=== PATIENT | female | born 1995 | race Caucasian/White ===

== ENCOUNTER 2019-10-14 11:30 | Emergency (ER) | payer MEDICAID ==
[2019-10-14] MEDS ORDERED: ONDANSETRON 4 MG TAB.RAPDIS PO ONE (11:40)
[2019-10-14] MEDS ORDERED: RINGERS SOLUTION,LACTATED 1,000 ML IV ONE (11:40)
--- NOTE | 2019-10-14 11:42 | ER Document Report ---
ED Medical Screen (RME) - General Chief Complaint: Abdominal Pain Stated Complaint: ABDOMINAL PAIN Time Seen by Provider: 10/14/19 11:37 Mode of Arrival: Ambulatory Information source: Patient Notes: 24-year-old female approximately 8 to 9 weeks at G5, P2 presents emergency department with complaints of lower abdominal pain nausea vomiting diarrhea. Reports she is had vomiting every morning since she became the past 48 hours she is vomited all day. Denies fever reports she did get her flu vaccine this year. Has not received care yet. Denies pain with void denies vaginal discharge denies vaginal bleeding I have greeted and performed a rapid initial assessment of this patient. A comprehensive ED assessment and evaluation of the patient, analysis of test results and completion of the medical decision making process will be conducted by additional ED providers. TRAVEL OUTSIDE OF THE [place] IN LAST 30 DAYS: No - Related Data Allergies/Adverse Reactions: No Known Allergies Allergy (Verified 10/14/19 11:36) Past Medical History - Social History Chew tobacco use (# tins/day): No Frequency of alcohol use: None Drug Abuse: None Physical Exam - Vital signs Vitals: Temp Pulse Resp BP Pulse Ox 98.9 F 91 16 131/78 H 100 10/14/19 11:35 10/14/19 11:35 10/14/19 11:35 10/14/19 11:35 10/14/19 11:35 Course - Vital Signs Vital signs: Temp Pulse Resp BP Pulse Ox 98.9 F 91 16 131/78 H 100 10/14/19 11:35 10/14/19 11:35 10/14/19 11:35 10/14/19 11:35 10/14/19 11:35
[2019-10-14 12:22] LABS: ABSOLUTE EOSINOPHILS # (AUTO) 0.1 10^3/uL (0.0-0.6); ABSOLUTE LYMPHOCYTES (AUTO) 1.7 10^3/uL (0.5-4.7); ABSOLUTE MONOCYTES (AUTO) 0.5 10^3/uL (0.1-1.4); ABSOLUTE NEUT (AUTO) 5.1 10^3/uL (1.7-8.2); BASOPHILS % (AUTO) 0.5 % (0-2); EOSINOPHILS % (AUTO) 1.4 % (0-6); HEMATOCRIT 38.8 % (36.0-47.0); HEMOGLOBIN 13.7 g/dL (12.0-15.5); LYMPHOCYTES % (AUTO) 22.4 % (13-45); MEAN CORPUSCULAR HEMOGLOBIN 31.2 pg (27.0-33.4); MEAN CORPUSCULAR HGB CONC 35.3 g/dL (32.0-36.0); MEAN CORPUSCULAR VOLUME 88 fl (80-97); MONOCYTES % (AUTO) 7.3 % (3-13); PLATELET COUNT 221 10^3/uL (150-450); RED CELL DISTRIBUTION WIDTH 13.7 % (11.5-14.0); SEGMENTED NEUTROPHILS % (AUTO) 68.4 % (42-78); TOTAL CELLS COUNTED % (AUTO) 100 %; WHITE BLOOD COUNT 7.4 10^3/uL (4.0-10.5)
[2019-10-14 12:39] LABS: ALBUMIN 4.8 g/dL (3.5-5.0); ALKALINE PHOSPHATASE 45 U/L (38-126); ANION GAP 9 (5-19); ASPARTATE AMINO TRANSFERASE 17 U/L (14-36); BILIRUBIN,DIRECT 0.1 mg/dL (0.0-0.4); BILIRUBIN,TOTAL 0.5 mg/dL (0.2-1.3); BLOOD UREA NITROGEN 7 mg/dL (7-20); CARBON DIOXIDE 25 mmol/L (22-30); CHLORIDE 105 mmol/L (98-107); GLUCOSE 74 mg/dL (75-110); POTASSIUM 3.9 mmol/L (3.6-5.0); TOTAL PROTEIN 7.4 g/dL (6.3-8.2)
[2019-10-14 12:46] LABS: APPEARANCE,URINE CLOUDY; BILIRUBIN,URINE NEGATIVE (NEGATIVE); GLUCOSE, URINE NEGATIVE (NEGATIVE); KETONES,URINE TRACE mg/dL (NEGATIVE); PROTEIN,URINE 30 mg/dL (NEGATIVE); URINE SPECIFIC GRAVITY 1.024; UROBILINOGEN,URINE NEGATIVE mg/dL (<2.0)
[2019-10-14 12:48] LABS: COLOR,URINE DARK YELLOW
--- NOTE | 2019-10-14 14:22 | ER Document Report ---
ED General - General Chief Complaint: Abdominal Pain Stated Complaint: ABDOMINAL PAIN Time Seen by Provider: 10/14/19 11:37 Primary Care Provider: [facility] [Provider Group] - Follow up as needed [facility] [Provider Group] - Follow up as needed Mode of Arrival: Ambulatory Notes: 24-year-old G5, P2 approximately 8 to 9 weeks female presents with lower abdominal pain that is been ongoing for the past 48 hours. Patient is also been having nausea/vomiting/diarrhea for the past week and a half. Patient denies any vaginal bleeding. Patient states she does have vaginal discharge and would like to be checked. Patient states she does not have an DISEASE CASE MANAGER RN and needs to be referred to 1. Patient denies any fever, chills, constipation, urinary symptoms, chest pain, shortness of breath. TRAVEL OUTSIDE OF THE [place] IN LAST 30 DAYS: No - Related Data Allergies/Adverse Reactions: No Known Allergies Allergy (Verified 10/14/19 11:36) Past Medical History - General Information source: Patient - Social History Smoking Status: Never Smoker Chew tobacco use (# tins/day): No Frequency of alcohol use: None Drug Abuse: None Family History: None Patient has suicidal ideation: No Patient has homicidal ideation: No Review of Systems - Review of Systems Notes: Constitutional: Negative for fever. HENT: Negative for sore throat. Eyes: Negative for visual changes. Cardiovascular: Negative for chest pain. Respiratory: Negative for shortness of breath. Gastrointestinal: Positive for abdominal pain, vomiting or diarrhea. Genitourinary: Negative for dysuria. Musculoskeletal: Negative for back pain. Skin: Negative for rash. Neurological: Negative for headaches, weakness or numbness. 10 point ROS negative except as marked above and in HPI. Physical Exam - Vital signs Vitals: Temp Pulse Resp BP Pulse Ox 98.9 F 91 16 131/78 H 100 10/14/19 11:35 10/14/19 11:35 10/14/19 11:35 10/14/19 11:35 10/14/19 11:35 - Notes Notes: GENERAL: Well-appearing, well-nourished and in no acute distress. HEAD: Atraumatic, normocephalic. EYES: Extraocular movements intact, sclera anicteric, conjunctiva are normal. NECK: Normal range of motion, supple without lymphadenopathy or JVD. LUNGS: Breath sounds clear to auscultation bilaterally and equal. No wheezes rales or rhonchi. HEART: Regular rate and rhythm without murmurs, rubs or gallops. ABDOMEN: Soft, nontender. No guarding or rebound. : Mild white vaginal discharge. No cervical motion or adnexal tenderness bilaterally. EXTREMITIES: Normal range of motion, no pitting or edema. No clubbing or cy anosis. NEUROLOGICAL: Cranial nerves II through XII grossly intact. Normal speech, normal gait. PSYCH: Normal mood, normal affect. SKIN: Warm, Dry, normal turgor, no rashes or lesions noted. Course - Re-evaluation Re-evalutation: 10/14/19 G5, P2 approximately 8 to 9-week female presents for lower abdominal pain with nausea/vomiting/diarrhea. Patient denies any vaginal bleeding. Labs are reassuring. Pelvic reveals mild white discharge with no cervical motion tenderness or bilateral adnexal tenderness. Patient is n ontoxic, well-appearing. Abdomen soft nontender. PE is otherwise unremarkable. Ultrasound and pelvic cultures are currently pending. 10/14/19 ultrasound shows IUP at 7 weeks 2 days. report and given to patient. Discussed all results with patient. Patient states his exam was consistent with bacterial vaginosis. Patient was given prescription for Flagyl and take lieges. Patient given close follow-up with DISEASE CASE MANAGER RN. Strict return precautions given. Patient voices understanding and agrees with plan of care. - Vital Signs Vital signs: Temp Pulse Resp BP Pulse Ox 98.8 F 82 16 114/61 98 10/14/19 16:51 10/14/19 16:51 10/14/19 16:51 10/14/19 16:51 10/14/19 16:51 - Laboratory Result Diagrams: 10/14/19 11:52 10/14/19 11:52 Laboratory results interpreted by me: 10/14/19 10/14/19 11:52 11:52 Creatinine 0.49 L Glucose 74 L Beta HCG, Quant 56715.00 H Urine Protein 30 H Urine Ketones TRACE H Leukocyte Esterase Rfl SMALL H Urine Ascorbic Acid 40 H Discharge - Discharge Clinical Impression: Bacterial vaginosis in , Lower abdominal pain, Nausea vomiting and diarrhea Qualifiers: Weeks of gestation: less than 8 weeks Qualified Code(s): Z3A.01 - Less than 8 weeks gestation of Condition: Stable Disposition: HOME, SELF-CARE Additional Instructions: Please take medications as prescribed. Your exam is most consistent with bacterial vaginosis, please take antibiotics as prescribed and finish all doses even if you feel better. Please follow-up with DISEASE CASE MANAGER RN listed in 3 to 5 days. Return to ER for any worsening symptoms, including worsening pain, vomiting not controlled by medication, urinary symptoms, vaginal bleeding/worsening discharge, fever, chest pain, shortness of breath, or any other symptoms that are concerning to you. Prescriptions: Doxylamine Succinate/Vit B6 [Pipe Key 10-10 mg Tablet] 2 each PO QHS #20 tablet. Metronidazole [Flagyl 500 mg Tablet] 500 mg PO BID #14 tablet Forms: Special Work Note, Return to Work Referrals: [facility] [Provider Group] - Follow up as needed [facility] [Provider Group] - Follow up as needed
[2019-10-14 15:18] LABS: T.VAGINALIS (WET MOUNT) NO TRICHOMONAS SEEN; WBCS (WET MOUNT) 4+ WBCS SEEN; YEAST (WET MOUNT) NO YEAST SEEN
[2019-10-14 15:19] LABS: BACTERIA (WET MOUNT) 4+ BACTERIA SEEN; EPITHELIALS (WET MOUNT) 4+ EPITHELIALS SEEN
--- NOTE | 2019-10-14 16:19 | RADIOLOGY REPORT (SQ) ---
EXAM DESCRIPTION: U/S [id number] TRNABD 1GES W/ODOP COMPLETED DATE/TIME: 10/14/2019 4:05 pm REASON FOR STUDY: 8-9 weeks preg abd pain vomiting COMPARISON: None. TECHNIQUE: Transabdominal static and realtime grayscale images acquired of the pelvis. Additional se lected spectral and color Doppler images recorded. All images stored on PACs. [id number],750 CLINICAL DATES: Unknown LIMITATIONS: None. FINDINGS: FETUS: Single Living intrauterine . ULTRASOUND EGA: 7 weeks 2 days. ULTRASOUND RADHA: 05/30/2020. EFW: Not applicable less than 20 weeks. CRL: 1.1 cm. FHR: 133 beats per minute. SURVEY: Too early to assess. AMNIOTIC FLUID: Adequate amount. PLACENTA: Not yet developed due to early gestation. SUBCHORIONIC BLEED: Yes SIZE OF BLEED: 1.7 x 1.2 cm. UTERUS: No masses. No anomalies. CERVICAL LENGTH: 2.2 cm. Closed. RIGHT ADNEXA: Normal ovary with normal vascular flow. 3 x 1.9 x 2.7 cm. No adnexal free fluid. No adnexal masses. LEFT ADNEXA: Ovary not seen. No adnexal free fluid. No adnexal masses. FREE FLUID: None. OTHER: No other significant finding. IMPRESSION: LIVING INTRAUTERINE . EGA 7 weeks 2 days. Trimester of : First trimester - 0 to 13 weeks. TECHNICAL DOCUMENTATION: JOB ID: [id number] [employer]- All Rights Reserved rev Reading location - IP/workstation name: [email or web address]
[2019-10-14 16:51] VITALS: BP 114/61
[2019-10-14 17:14] LABS: CHLAM PCR NOT DETECTED (NOT DETECT)
== END 2019-10-14 16:53 | disposition home or self-care (01) ==
LOC: ER 11:30
DX: O23.591 Infection of other part of genital tract in pregnancy, first trimester (principal); B96.89 Other specified bacterial agents as the cause of diseases classified elsewhere; O26.891 Other specified pregnancy related conditions, first trimester; R10.30 Lower abdominal pain, unspecified; O21.9 Vomiting of pregnancy, unspecified; R19.7 Diarrhea, unspecified; Z3A.01 Less than 8 weeks gestation of pregnancy
CPT/HCPCS: 99284; 96360; 36415; 87086; 87210; 84702; 85025; 80053; 81001; 87491; 87591; 76801; S0119; J7120

== ENCOUNTER 2019-11-20 10:41 | Emergency (ER) | payer MEDICAID ==
[2019-11-20] MEDS ORDERED: ONDANSETRON HCL INJ/PF 4 MG/2 ML SDV IM ONE (11:56)
--- NOTE | 2019-11-20 11:56 | ER Document Report ---
ED Medical Screen (RME) - General Chief Complaint: Nausea/Vomiting Stated Complaint: NAUSEA/VOMITING Time Seen by Provider: 11/20/19 11:55 Mode of Arrival: Ambulatory Information source: Patient Notes: 24-year-old female presented to ED for complaint of nausea and vomiting not being able to eat. She went to the health department yesterday and they told her she continued to vomit for the next 24 hours please to go to the emergency room. She states she is 5 para 2. She states she is tried Diclegis and Zofran by mouth and neither one has helped. I have greeted and performed a rapid initial assessment of this patient. A comprehensive ED assessment and evaluation of the patient, analysis of test results and completion of medical decision making process will be conducted by an additional ED providers. TRAVEL OUTSIDE OF THE [place] IN LAST 30 DAYS: No - Related Data Allergies/Adverse Reactions: azithromycin Adverse Reaction (Intermediate, Verified 11/20/19 11:54) GI upset Home Medications: pnv Physical Exam - Vital signs Vitals: Temp Pulse Resp BP Pulse Ox 98.8 F 77 14 111/66 98 11/20/19 10:55 11/20/19 10:55 11/20/19 10:55 11/20/19 10:55 11/20/19 10:55 Course - Vital Signs Vital signs: Temp Pulse Resp BP Pulse Ox 98.8 F 77 14 111/66 98 11/20/19 10:55 11/20/19 10:55 11/20/19 10:55 11/20/19 10:55 11/20/19 10:55
[2019-11-20] MEDS ORDERED: NORMAL SALINE 1000 ML 1,000 ML IV PRN (11:57)
[2019-11-20 12:47] LABS: ABSOLUTE LYMPHOCYTES (AUTO) 1.5 10^3/uL (0.5-4.7); ABSOLUTE MONOCYTES (AUTO) 0.6 10^3/uL (0.1-1.4); ABSOLUTE NEUT (AUTO) 7.9 10^3/uL (1.7-8.2); BASOPHILS % (AUTO) 0.5 % (0-2); EOSINOPHILS % (AUTO) 0.5 % (0-6); HEMATOCRIT 37.3 % (36.0-47.0); HEMOGLOBIN 13.2 g/dL (12.0-15.5); LYMPHOCYTES % (AUTO) 14.6 % (13-45); MEAN CORPUSCULAR HEMOGLOBIN 31.4 pg (27.0-33.4); MEAN CORPUSCULAR HGB CONC 35.5 g/dL (32.0-36.0); MEAN CORPUSCULAR VOLUME 89 fl (80-97); MONOCYTES % (AUTO) 5.6 % (3-13); PLATELET COUNT 251 10^3/uL (150-450); RED BLOOD COUNT 4.21 10^6/uL (3.72-5.28); RED CELL DISTRIBUTION WIDTH 13.8 % (11.5-14.0); SEGMENTED NEUTROPHILS % (AUTO) 78.8 % (42-78); TOTAL CELLS COUNTED % (AUTO) 100 %
[2019-11-20 12:51] LABS: APPEARANCE,URINE CLOUDY; BILIRUBIN,URINE NEGATIVE (NEGATIVE); COLOR,URINE YELLOW; GLUCOSE, URINE NEGATIVE (NEGATIVE); KETONES,URINE 80 mg/dL (NEGATIVE); PROTEIN,URINE 30 mg/dL (NEGATIVE); URINE SPECIFIC GRAVITY 1.024; UROBILINOGEN,URINE NEGATIVE mg/dL (<2.0)
[2019-11-20 13:07] LABS: ALBUMIN 4.3 g/dL (3.5-5.0); ALKALINE PHOSPHATASE 62 U/L (38-126); ANION GAP 7 (5-19); ASPARTATE AMINO TRANSFERASE 16 U/L (14-36); BILIRUBIN,TOTAL 0.5 mg/dL (0.2-1.3); BLOOD UREA NITROGEN 8 mg/dL (7-20); CALCIUM 9.5 mg/dL (8.4-10.2); CARBON DIOXIDE 25 mmol/L (22-30); CHLORIDE 103 mmol/L (98-107); GLUCOSE 71 mg/dL (75-110); POTASSIUM 4.5 mmol/L (3.6-5.0); TOTAL PROTEIN 7.1 g/dL (6.3-8.2)
--- NOTE | 2019-11-20 13:25 | ER Document Report ---
ED General - General Chief Complaint: Nausea/Vomiting Stated Complaint: NAUSEA/VOMITING Time Seen by Provider: 11/20/19 11:55 Mode of Arrival: Ambulatory Notes: 24-year-old female G3, P2 approximately early second trimester with history of nausea vomiting with presents with nausea vomiting and some back pain. She has no dysuria or fever. She is Blayne been taking Ticlid just and Zofran and it is not working. She denies abdominal pain vaginal bleeding or loss of fluid. She was seen at triage where labs were drawn: Normal except for UTI. TRAVEL OUTSIDE OF THE [place] IN LAST 30 DAYS: No - Related Data Allergies/Adverse Reactions: azithromycin Adverse Reaction (Intermediate, Verified 11/20/19 11:54) GI upset Home Medications: pnv Past Medical History - General Information source: Patient - Social History Smoking Status: Former Smoker Chew tobacco use (# tins/day): No Frequency of alcohol use: None Drug Abuse: None Family History: None Patient has suicidal ideation: No Patient has homicidal ideation: No Review of Systems - Review of Systems Notes: REVIEW OF SYSTEMS GEN: Denies fever, chills, weight loss ENT: Denies sore throat, nasal discharge, ear pain EYES: Denies blurry vision, eye pain, discharge CV: Denies chest pain, palpitations, edema RESP: Denies cough, shortness of breath, wheezing GI: , nausea, vomiting, MSK: Denies joint pain/swelling, edema, SKIN: Denies rash, skin lesions LYMPH: Denies swollen glands/lymph nodes NEURO: Denies headache, focal weakness or numbness, dizziness PSYCH: Denies depression, suicidal or homicidal ideation PHYSICAL EXAMINATION General: No acute distress, well-nourished Head: Atraumatic, normocephalic ENT: Mouth normal, oropharynx moist, no exudates or tonsillar enlargement Eyes: Conjunctiva normal, pupils equal, lids normal Neck: No JVD, supple, no guarding CVS: Normal rate, regular rhythm, no murmurs Resp: No resp distress, equal and normal breath sounds bilaterally GI: Nondistended, soft, no tenderness to palpation, no rebound or guarding Ext: No deformities, no edema, normal range of motion in upper and lower ext Back: No CVA or midline TTP Skin: No rash, warm Lymphatic: No lymphadeopathy noted Neuro: Awake, alert. Face symmetric. GCS 15. Physical Exam - Vital signs Vitals: Temp Pulse Resp BP Pulse Ox 98.8 F 77 14 111/66 98 11/20/19 10:55 11/20/19 10:55 11/20/19 10:55 11/20/19 10:55 11/20/19 10:55 Course - Re-evaluation Re-evalutation: 11/20/19 13:48 Nausea and vomiting with , not actively vomiting in the ED, labs normal without electrolyte abnormalities or acute kidney injury. Has not been able to tolerate oral antiemetics. heart tones intact, at this time I think she is low risk for miscarriage. Her urine is positive for infection will require antibiotics. I will add on Phenergan suppositories. She is now on a wait in the ED as she is only been waiting for 3 hours, would rather go to pharmacy and attempt home care with PhenerganI think this is reasonable. I have discussed with the patient there likely diagnosis, aftercare plan, follow-up plans and my usual and customary return precautions. They verbalized understanding of this. - Vital Signs Vital signs: Temp Pulse Resp BP Pulse Ox 98.9 F 86 16 101/60 97 11/20/19 13:34 11/20/19 13:34 11/20/19 13:34 11/20/19 13:34 11/20/19 13:34 - Laboratory Result Diagrams: 11/20/19 12:30 11/20/19 12:30 Laboratory results interpreted by me: 11/20/19 11/20/19 11/20/19 12:30 12:30 12:30 Seg Neutrophils % 78.8 H Sodium 135.4 L Creatinine 0.38 L Glucose 71 L Urine Protein 30 H Urine Ketones 80 H Leukocyte Esterase Rfl LARGE H Discharge - Discharge Clinical Impression: Cystitis, Nausea/vomiting in Condition: Good Disposition: HOME, SELF-CARE Instructions: Pyelonephritis ([facility]) Prescriptions: Promethazine HCl [Phenergan 25 mg Supp.rect] 25 mg MD Q4HP PRN #12 supp.rect PRN Reason: Cefuroxime Axetil [Ceftin 500 mg Tablet] 500 mg PO BID #10 tablet Forms: Return to Work
[2019-11-20 13:37] VITALS: BP 101/60
== END 2019-11-20 14:03 | disposition home or self-care (01) ==
LOC: ER 10:41
DX: O23.12 Infections of bladder in pregnancy, second trimester (principal); O21.8 Other vomiting complicating pregnancy; Z3A.00 Weeks of gestation of pregnancy not specified; Z88.3 Allergy status to other anti-infective agents
CPT/HCPCS: 36415; 80053; 81001; 83690; 84702; 85025

== ENCOUNTER 2019-12-04 10:37 | Emergency (ER) | payer MEDICAID ==
--- NOTE | 2019-12-04 10:48 | ER Document Report ---
ED Medical Screen (RME) - General Chief Complaint: Abdominal Pain Stated Complaint: ABDOMINAL PAIN Time Seen by Provider: 12/04/19 10:46 TRAVEL OUTSIDE OF THE [place].S[place] IN LAST 30 DAYS: No - HPI Notes: 12/04/19 10:47 Patient is a 24-year-old female who is approximately 14 weeks who presents complaining of lower pelvic pain "mostly on the outside" over the past 1 to 2 days. Patient states that it feels like a bruise that will not go away. She has not noticed any skin color changes. No vaginal bleeding, odor, or discharge. Patient states that the health department she was seeing told her to come here for evaluation and for ultrasound. She is otherwise able to eat and drink without difficulty. She is urinating normally and having normal bowel movements. No recent illness. No fever, chest pain, shortness of breath, vomiting/diarrhea. I have treated and performed a rapid initial assessment of this patient. A comprehensive ED assessment and evaluation of the patient, analysis of test results and completion of medical decision making process will be conducted by additional ED providers. PHYSICAL EXAMINATION: GENERAL: Well-appearing, well-nourished and in no acute distress. A&Ox4. Answers questions appropriately. - Related Data Allergies/Adverse Reactions: azithromycin Adverse Reaction (Intermediate, Verified 11/20/19 11:54) GI upset Past Medical History Past Surgical History: Reports: Hx Orthopedic Surgery Physical Exam - Vital signs Vitals: Temp Pulse Resp BP Pulse Ox 98 F 86 18 114/67 100 12/04/19 10:41 12/04/19 10:41 12/04/19 10:41 12/04/19 10:41 12/04/19 10:41 Course - Vital Signs Vital signs: Temp Pulse Resp BP Pulse Ox 98 F 86 18 114/67 100 12/04/19 10:41 12/04/19 10:41 12/04/19 10:41 12/04/19 10:41 12/04/19 10:41
[2019-12-04 11:18] LABS: ABSOLUTE EOSINOPHILS # (AUTO) 0.1 10^3/uL (0.0-0.6); ABSOLUTE LYMPHOCYTES (AUTO) 1.7 10^3/uL (0.5-4.7); ABSOLUTE MONOCYTES (AUTO) 0.6 10^3/uL (0.1-1.4); ABSOLUTE NEUT (AUTO) 7.1 10^3/uL (1.7-8.2); BASOPHILS % (AUTO) 0.4 % (0-2); EOSINOPHILS % (AUTO) 0.7 % (0-6); HEMOGLOBIN 12.1 g/dL (12.0-15.5); LYMPHOCYTES % (AUTO) 18.4 % (13-45); MEAN CORPUSCULAR HEMOGLOBIN 31.1 pg (27.0-33.4); MEAN CORPUSCULAR HGB CONC 34.6 g/dL (32.0-36.0); MEAN CORPUSCULAR VOLUME 90 fl (80-97); MONOCYTES % (AUTO) 6.1 % (3-13); PLATELET COUNT 227 10^3/uL (150-450); RED CELL DISTRIBUTION WIDTH 13.7 % (11.5-14.0); SEGMENTED NEUTROPHILS % (AUTO) 74.4 % (42-78); TOTAL CELLS COUNTED % (AUTO) 100 %; WHITE BLOOD COUNT 9.5 10^3/uL (4.0-10.5)
[2019-12-04] MEDS ORDERED: ACETAMINOPHEN 325 MG TABLET PO ONE (11:28)
--- NOTE | 2019-12-04 11:30 | ER Document Report ---
ED GI/ - General Chief Complaint: Pelvic Pain Stated Complaint: ABDOMINAL PAIN Time Seen by Provider: 12/04/19 10:46 [facility] - Follow up in 3-5 days Mode of Arrival: Ambulatory Information source: Patient Notes: Patient states she is currently 14 weeks G5, P2. Patient states that she developed pelvic cramping yesterday. Patient states that this feels different than pelvic cramping she is had with previous pregnancies. Patient states that she does have low back pain as well. No vaginal bleeding or discharge. Patient states she was recently treated for UTI several weeks ago but feels as though her symptoms have completely resolved. Patient denies any complications during the . Patient has had some nausea and vomiting in the mornings only with this but states she has since been able to keep liquids down. TRAVEL OUTSIDE OF THE [place] IN LAST 30 DAYS: No - HPI Patient complains to provider of: Abdominal pain, , Vomiting. No: Vaginal bleeding, Vaginal discharge Onset: Yesterday Timing/Duration: Persistent Quality of pain: Cramping Pain Level: 2 Location: Pelvis Vaginal bleeding (Compared to normal period): None Menstrual period history: Sexual history: Active Associated symptoms: Nausea, Vomiting. denies: Chest pain, Dysuria, Fever, Urinary hesitancy, Urinary frequency, Urinary retention, Vaginal discharge Exacerbated by: Denies Relieved by: Denies Similar symptoms previously: Yes Recently seen / treated by doctor: No - Related Data Allergies/Adverse Reactions: azithromycin Adverse Reaction (Intermediate, Verified 11/20/19 11:54) GI upset Home Medications: prenatals Past Medical History - General Information source: Patient - Social History Smoking Status: Former Smoker Frequency of alcohol use: None Drug Abuse: None Occupation: Call center Lives with: Family Family History: None Patient has suicidal ideation: No Patient has homicidal ideation: No - Medical History Medical History: Negative Past Surgical History: Reports: Orthopedic Surgery Review of Systems - Review of Systems Constitutional: No symptoms reported. denies: Fever EENT: No symptoms reported Cardiovascular: No symptoms reported. denies: Chest pain Respiratory: No symptoms reported. denies: Cough, Short of breath Gastrointestinal: Abdominal pain, Nausea, Vomiting - Daily morning sickness that resolves by afternoon Genitourinary: No symptoms reported. denies: Dysuria, Flank pain, Hematuria Female Genitourinary: . denies: Vaginal discharge, Vaginal bleeding Musculoskeletal: Back pain Skin: No symptoms reported Hematologic/Lymphatic: No symptoms reported Neurological/Psychological: No symptoms reported Physical Exam - Vital signs Vitals: Temp Pulse Resp BP Pulse Ox 98 F 86 18 114/67 100 12/04/19 10:41 12/04/19 10:41 12/04/19 10:41 12/04/19 10:41 12/04/19 10:41 - General General appearance: Appears well, Alert In distress: None - HEENT Head: Normocephalic, Atraumatic Eyes: Normal Conjunctiva: Normal Nasal: Normal Mouth/Lips: Normal Mucous membranes: Normal Neck: Normal, Supple - Respiratory Respiratory status: No respiratory distress Chest status: Nontender Breath sounds: Normal. No: Rales, Rhonchi, Stridor, Wheezing Chest palpation: Normal - Cardiovascular Rhythm: Regular Heart sounds: S1 appreciated, S2 appreciated Murmur: No - Abdominal Inspection: Gravid female Distension: No distension Bowel sounds: Normal Tenderness: Tender - Suprapubic, left lower pelvic Organomegaly: No organomegaly - Back Back: Normal, Nontender. No: CVA tenderness - Extremities General upper extremity: Normal inspection, Normal ROM General lower extremity: Normal inspection, Normal ROM - Neurological Neuro grossly intact: Yes Cognition: Normal Nikos Coma Scale Eye Opening: Spontaneous [place] Coma Scale Verbal: Oriented Nikos Coma Scale Motor: Obeys Commands Char[place]ont Coma Scale Total: 15 - Psychological Associated symptoms: Normal affect, Normal mood - Skin Skin Temperature: Warm Skin Moisture: Dry Skin Color: Normal Course - Re-evaluation Re-evalutation: 12/04/19 Patient with left lower pelvic tenderness, no fever or leukocytosis, no vaginal bleeding or discharge. Patient is currently followed by [facility]. No concern for STI. Ultrasound reviewed without any acute findings. Discussed worsening symptoms that patient should return immediately for. Patient encouraged to recheck with her [facility] for further evaluation. Patient presents with abdominal pain without signs of peritonitis or other life-threatening or serious etiology. Patient appears stable for discharge and has been instructed to return immediately if the symptoms worsen in any way. - Vital Signs Vital signs: Temp Pulse Resp BP Pulse Ox 98.2 F 88 18 112/80 100 12/04/19 13:10 12/04/19 13:10 12/04/19 13:10 12/04/19 13:10 12/04/19 13:10 - Laboratory Result Diagrams: 12/04/19 11:05 12/04/19 11:05 Laboratory results interpreted by me: 12/04/19 12/04/19 12/04/19 11:05 11:05 11:05 Hct 35.0 L Sodium 133.7 L Creatinine 0.37 L Leukocyte Esterase Rfl SMALL H 12/04/19 18:42 Labs- Entire Visit 12/04/19 12/04/19 12/04/19 11:05 11:05 11:05 WBC 9.5 RBC 3.90 Hgb 12.1 Hct 35.0 L MCV 90 MCH 31.1 MCHC 34.6 RDW 13.7 Plt Count 227 Lymph % (Auto) 18.4 [place] % (Auto) 6.1 Eos % (Auto) 0.7 Baso % (Auto) 0.4 Absolute Neuts (auto) 7.1 Absolute Lymphs (auto) 1.7 Absolute Monos (auto) 0.6 Absolute Eos (auto) 0.1 Absolute Basos (auto) 0.0 Seg Neutrophils % 74.4 Sodium 133.7 L Potassium 4.5 Chloride 103 Carbon Dioxide 26 Anion Gap 5 BUN 7 Creatinine 0.37 L Est GFR ( Amer) > 60 Est GFR (MDRD) Non-Af > 60 Glucose 80 Calcium 9.3 Total Bilirubin 0.3 Direct Bilirubin 0.0 Neonat Total Bilirubin Not Reportable Neonat Direct Bilirubin Not Reportable Neonat Indirect Bili Not Reportable AST 16 ALT 7 Alkaline Phosphatase 56 Total Protein 6.3 Albumin 3.7 Lipase 31.4 Urine Color YELLOW Urine Appearance CLOUDY Urine pH 5.0 Ur Specific [place] 1.021 Urine Protein NEGATIVE Urine Glucose (UA) NEGATIVE Urine Ketones NEGATIVE Urine Blood NEGATIVE Urine Nitrite (Reflex) NEGATIVE Urine Bilirubin NEGATIVE Urine Urobilinogen NEGATIVE Leukocyte Esterase Rfl SMALL H Urine RBC (Auto) 4 Urine Bacteria (Auto) TRACE Urine WBC (Reflex) 19 Squamous Epi Cells Auto 50 Urine Mucus (Auto) MOD Urine Ascorbic Acid NEGATIVE - Diagnostic Test Radiology reviewed: Reports reviewed Discharge - Discharge Clinical Impression: Pelvic pain affecting Qualifiers: Trimester: second trimester Qualified Code(s): O26.892 - Other specified related conditions, second trimester UTI (urinary tract infection) Qualifiers: Urinary tract infection type: site unspecified Hematuria presence: without hematuria Qualified Code(s): N39.0 - Urinary tract infection, site not specified Condition: Stable Disposition: HOME, SELF-CARE Instructions: Nitrofurantoin ([facility]), Pelvic Pain in ([facility]), Urinary Tract Infection ([facility]) Additional Instructions: Return immediately for any new or worsening symptoms: Worsening pain, fever, vomiting or any new or worsening symptoms Followup with your primary care provider, call tomorrow to make a followup appointment Urine culture is pending, we will call if you need any different treatment Prescriptions: Nitrofurantoin Monohyd/M-Cryst [Macrobid 100 mg Capsule] 100 mg PO BID #10 cap Forms: Return to Work Referrals: [facility] [NO LOCAL MD] - Follow up in 3-5 days
[2019-12-04 11:33] LABS: APPEARANCE,URINE CLOUDY; BILIRUBIN,URINE NEGATIVE (NEGATIVE); GLUCOSE, URINE NEGATIVE (NEGATIVE); KETONES,URINE NEGATIVE (NEGATIVE); PROTEIN,URINE NEGATIVE (NEGATIVE); URINE SPECIFIC GRAVITY 1.021; UROBILINOGEN,URINE NEGATIVE mg/dL (<2.0)
[2019-12-04 11:34] LABS: COLOR,URINE YELLOW
[2019-12-04 11:37] LABS: ALBUMIN 3.7 g/dL (3.5-5.0); ALKALINE PHOSPHATASE 56 U/L (38-126); ANION GAP 5 (5-19); ASPARTATE AMINO TRANSFERASE 16 U/L (14-36); BILIRUBIN,TOTAL 0.3 mg/dL (0.2-1.3); BLOOD UREA NITROGEN 7 mg/dL (7-20); CALCIUM 9.3 mg/dL (8.4-10.2); CARBON DIOXIDE 26 mmol/L (22-30); CHLORIDE 103 mmol/L (98-107); GLUCOSE 80 mg/dL (75-110); POTASSIUM 4.5 mmol/L (3.6-5.0); TOTAL PROTEIN 6.3 g/dL (6.3-8.2)
--- NOTE | 2019-12-04 12:18 | RADIOLOGY REPORT (SQ) ---
EXAM DESCRIPTION: U/S OB LIMITED COMPLETED DATE/TIME: 12/04/2019 10:34 am REASON FOR STUDY: lower pelv pain, approx 14 weeks preg estimated date of delivery based on 1st trim lou ultrasound is 05/30/2020. A2. LMP 08/24/2019 COMPARISON: TECHNIQUE: Limited transabdominal grayscale ultrasound for evaluation of specific requested obstetri iris parameters. LIMITATIONS: None. FINDINGS: CERVICAL LENGTH: 3.31 cm Closed. POOL: Adequate,. FHR: 157 beats per minute. PRESENTATION: Variable PLACENTA: Low-lying. ANATOMY: Not assessed OTHER: No other significant findings. IMPRESSION: Single live intrauterine of gestational age 15 weeks 0 days. There is been ex pected interval growth. Low-lying placenta. Re-evaluation on follow-up imaging is recommended. Trimester of : Second trimester - 13 weeks 1 day to 27 weeks 6 days. TECHNICAL DOCUMENTATION: JOB ID: [id number] 2010 [employer]- All Rights Reserved Reading location - IP/workstation name: [email or web address]
[2019-12-04 13:11] VITALS: BP 112/80
== END 2019-12-04 13:11 | disposition home or self-care (01) ==
LOC: ER 10:37
DX: O23.42 Unspecified infection of urinary tract in pregnancy, second trimester (principal); O26.892 Other specified pregnancy related conditions, second trimester; R10.2 Pelvic and perineal pain; Z3A.14 14 weeks gestation of pregnancy
CPT/HCPCS: 36415; 83690; 85025; 80053; 81001; 76815; J3490; 87086

== ENCOUNTER 2019-12-13 10:08 | Emergency (ER) | payer MEDICAID ==
--- NOTE | 2019-12-13 10:39 | ER Document Report ---
ED Medical Screen (RME) - General Chief Complaint: Vomiting Stated Complaint: VOMITING Time Seen by Provider: 12/13/19 10:36 TRAVEL OUTSIDE OF THE [place] IN LAST 30 DAYS: No - HPI Notes: 12/13/19 10:39 Patient is a 24-year-old female who was sent by her BEHAVIORAL HEALTH SPECIALIST for evaluation and management for nausea, vomiting, low back pain, pelvic cramping that is been ongoing for 36 hours. She has not noticed any vaginal bleeding, but is currently being treated for UTI. She was here 9 days ago for something similar. No fever, chest pain, shortness of breath. I have treated and performed a rapid initial assessment of this patient. A comprehensive ED assessment and evaluation of the patient, analysis of test results and completion of medical decision making process will be conducted by additional ED providers. PHYSICAL EXAMINATION: GENERAL: Well-appearing, well-nourished and in no acute distress. A&Ox4. Answers questions appropriately. - Related Data Allergies/Adverse Reactions: azithromycin Adverse Reaction (Intermediate, Verified 12/13/19 10:35) GI upset Past Medical History Past Surgical History: Reports: Hx Orthopedic Surgery Physical Exam - Vital signs Vitals: Temp Pulse Resp BP Pulse Ox 98.2 F 99 14 125/68 97 12/13/19 10:12 12/13/19 10:12 12/13/19 10:12 12/13/19 10:12 12/13/19 10:12 Course - Vital Signs Vital signs: Temp Pulse Resp BP Pulse Ox 98.2 F 99 14 125/68 97 12/13/19 10:12 12/13/19 10:12 12/13/19 10:12 12/13/19 10:12 12/13/19 10:12
[2019-12-13] MEDS ORDERED: NORMAL SALINE 1000 ML 1,000 ML IV ONE (10:40)
[2019-12-13] MEDS ORDERED: METOCLOPRAMIDE HCL INJ/PF 10 MG/2 ML SDV IV ONE (10:41)
--- NOTE | 2019-12-13 11:43 | RADIOLOGY REPORT (SQ) ---
EXAM DESCRIPTION: U/S OB LIMITED COMPLETED DATE/TIME: 12/13/2019 11:24 am REASON FOR STUDY: pelvic cramping, approx 16 weeks COMPARISON: None. TECHNIQUE: Limited transabdominal grayscale ultrasound for evaluation of specific requested obstetri iris parameters. LIMITATIONS: None. FINDINGS: EGA: 16 week 2 day. RADHA: 05/27/2020. EFW: 147 g. CERVICAL LENGTH: 3.6 cm. Closed. POOL: Largest pocket 2.5 cm. FHR: 144 beats per minute. PRESENTATION: Transverse. ANATOMY: Not assessed OTHER: No other significant findings. IMPRESSION: LIMITED OBSTETRICAL ULTRASOUND WITH MEASURED PARAMETERS DELINEATED ABOVE. Trimester of : Second trimester - 13 weeks 1 day to 27 weeks 6 days. TECHNICAL DOCUMENTATION: JOB ID: [id number] 2010 [employer]- All Rights Reserved Reading location - IP/workstation name: [email or web address]
[2019-12-13 11:53] LABS: ABSOLUTE EOSINOPHILS # (AUTO) 0.1 10^3/uL (0.0-0.6); ABSOLUTE MONOCYTES (AUTO) 0.7 10^3/uL (0.1-1.4); BASOPHILS % (AUTO) 0.4 % (0-2); LYMPHOCYTES % (AUTO) 18.3 % (13-45); TOTAL CELLS COUNTED % (AUTO) 100 %
[2019-12-13 12:12] LABS: ABSOLUTE LYMPHOCYTES (AUTO) 1.9 10^3/uL (0.5-4.7); ABSOLUTE NEUT (AUTO) 7.6 10^3/uL (1.7-8.2); EOSINOPHILS % (AUTO) 0.6 % (0-6); HEMATOCRIT 34.7 % (36.0-47.0); HEMOGLOBIN 12.5 g/dL (12.0-15.5); MEAN CORPUSCULAR HGB CONC 35.9 g/dL (32.0-36.0); MEAN CORPUSCULAR VOLUME 89 fl (80-97); PLATELET COUNT 223 10^3/uL (150-450); RED CELL DISTRIBUTION WIDTH 13.8 % (11.5-14.0); SEGMENTED NEUTROPHILS % (AUTO) 73.7 % (42-78); WHITE BLOOD COUNT 10.3 10^3/uL (4.0-10.5)
[2019-12-13 12:28] LABS: ALBUMIN 4.1 g/dL (3.5-5.0); ALKALINE PHOSPHATASE 64 U/L (38-126); ANION GAP 9 (5-19); ASPARTATE AMINO TRANSFERASE 15 U/L (14-36); BILIRUBIN,DIRECT 0.2 mg/dL (0.0-0.4); BILIRUBIN,TOTAL 0.5 mg/dL (0.2-1.3); BLOOD UREA NITROGEN 8 mg/dL (7-20); CALCIUM 9.5 mg/dL (8.4-10.2); CARBON DIOXIDE 25 mmol/L (22-30); CHLORIDE 101 mmol/L (98-107); GLUCOSE 79 mg/dL (75-110); POTASSIUM 3.6 mmol/L (3.6-5.0); TOTAL PROTEIN 7.2 g/dL (6.3-8.2)
[2019-12-13 13:18] LABS: AMORPHOUS SEDIMENT,URINE 1+ /HPF; APPEARANCE,URINE TURBID; BILIRUBIN,URINE NEGATIVE (NEGATIVE); COLOR,URINE AMBER; GLUCOSE, URINE NEGATIVE (NEGATIVE); KETONES,URINE 80 mg/dL (NEGATIVE); PROTEIN,URINE 30 mg/dL (NEGATIVE); URINE SPECIFIC GRAVITY 1.019
--- NOTE | 2019-12-13 13:31 | ER Document Report ---
ED GI/ - General Chief Complaint: Vomiting Stated Complaint: VOMITING Time Seen by Provider: 12/13/19 10:36 Mode of Arrival: Ambulatory Information source: Patient Notes: 24-year-old female presented to ED for management of nausea vomiting and low pain back pain and cramping for the last 36 hours. She states she has not had any vaginal bleeding and she is being currently treated for UTI with antibiotics. She states she had something similar 9 days ago and was started on antibiotics. She denies any fevers chills shortness of breath or chest pain. Patient is alert oriented respirations regular nonlabored speaking in full sentences. Patient is 5 para 2 she is a former smoker does not drink or use any drugs. She was seen in the [facility] area blood work urine and ultrasound wer e completed. She does have a live intrauterine . She is 16 weeks 2 days estimated date of delivery is 05/27/2020 with a heart tone of 147. Patient states she feels much better with the medicine they gave her in the triage area and wanted to know if she could get a prescription for that medicine at home. She states the IV fluids really made her feel better. I will give her a prescription for the Zofran I have given instructions on how to drink small amounts at a time and is slowly increasing as she tolerates the fluids. Patient has verbalized understanding of this we will discharge her home at this time. TRAVEL OUTSIDE OF THE [place] IN LAST 30 DAYS: No - HPI Patient complains to provider of: Pelvic pain, Other - Nausea and vomiting during Onset: Other - 36 hours Timing/Duration: Gone Quality of pain: No pain Severity at maximum: Moderate Severity in ED: None Pain Level: Denies Vaginal bleeding (Compared to normal period): None : 5 Para: 2 heart tones (bpm): 147 EDC: 05/27/20 OB ultrasound done: Yes vitamins taken: Yes Associated symptoms: Nausea, Vomiting Exacerbated by: Food Relieved by: Other - IV fluids and Reglan Similar symptoms previously: Yes Recently seen / treated by doctor: Yes - Related Data Allergies/Adverse Reactions: nut - unspecified Adverse Reaction (Severe, Verified 12/13/19 11:44) Anaphylaxis tree nut Adverse Reaction (Severe, Verified 12/13/19 11:44) Anaphylaxis azithromycin Adverse Reaction (Intermediate, Verified 12/13/19 10:35) GI upset Home Medications: prenatals daily. bactrim DS Past Medical History - General Information source: Patient - Social History Smoking Status: Former Smoker Chew tobacco use (# tins/day): No Frequency of alcohol use: None Drug Abuse: None Lives with: Family Family History: None Patient has suicidal ideation: No Patient has homicidal ideation: No - Past Medical History Cardiac Medical History: Reports: None Pulmonary Medical History: Reports: None EENT Medical History: Reports: None Neurological Medical History: Reports: None Endocrine Medical History: Reports: None Renal/ Medical History: Reports: None Malignancy Medical History: Reports: None GI Medical History: Reports: None Musculoskeletal Medical History: Reports Hx Musculoskeletal Trauma Skin Medical History: Reports None Psychiatric Medical History: Reports: None Traumatic Medical History: Reports: None Infectious Medical History: Reports: None Past Surgical History: Reports: Hx Orthopedic Surgery - Immunizations Immunizations up to date: Yes Hx Diphtheria, Pertussis, Tetanus Vaccination: Yes Review of Systems - Review of Systems Constitutional: No symptoms reported EENT: No symptoms reported Cardiovascular: No symptoms reported Respiratory: No symptoms reported Gastrointestinal: Nausea, Vomiting, Other - Abdominal and back cramping Genitourinary: No symptoms reported Female Genitourinary: Musculoskeletal: No symptoms reported Skin: No symptoms reported Hematologic/Lymphatic: No symptoms reported Neurological/Psychological: No symptoms reported -: Yes All other systems reviewed and negative Physical Exam - Vital signs Vitals: Temp Pulse Resp BP Pulse Ox 98.2 F 99 14 125/68 97 12/13/19 10:12 12/13/19 10:12 12/13/19 10:12 12/13/19 10:12 12/13/19 10:12 Interpretation: Normal - General General appearance: Appears well, Alert - HEENT Head: Normocephalic, Atraumatic Eyes: Normal Pupils: PERRL - Respiratory Respiratory status: No respiratory distress Chest status: Nontender Breath sounds: Normal Chest palpation: Normal - Cardiovascular Rhythm: Regular Heart sounds: Normal auscultation Murmur: No - Abdominal Inspection: Gravid female Distension: No distension Bowel sounds: Normal Tenderness: Nontender Organomegaly: No organomegaly Notes: Patient states cramping has all been relieved with Reglan and fluids. Request a prescription for the Reglan that she got in the emergency room. We will provide her with a prescription - Back Back: Normal, Nontender - Extremities General upper extremity: Normal inspection, Nontender, Normal color, Normal ROM, Normal temperature General lower extremity: Normal inspection, Nontender, Normal color, Normal ROM, Normal temperature, Normal weight bearing. No: Ozzy's sign - Neurological Neuro grossly intact: Yes Cognition: Normal Orientation: AAOx4 [place] Coma Scale Eye Opening: Spontaneous [place] Coma Scale Verbal: Oriented Nikos Coma Scale Motor: Obeys Commands Nikos Coma Scale Total: 15 Speech: Normal Motor strength normal: LUE, RUE, LLE, RLE Sensory: Normal - Psychological Associated symptoms: Normal affect, Normal mood - Skin Skin Temperature: Warm Skin Moisture: Dry Skin Color: Normal Course - Re-evaluation Re-evalutation: 12/13/19 13:30 Discussed labs and ultrasound with patient written report of labs and ultrasound given to patient for follow-up with primary care at the health department. She has been instructed to use hers Reglan and fluids to prevent dehydration in the future. She has been given other instructions to help to decrease the nausea and vomiting during . Patient is alert oriented respirations regular nonlabored speaking in full sentences and is able to verbalize understanding and agreement with treatment plan. - Vital Signs Vital signs: Temp Pulse Resp BP Pulse Ox 98.5 F 97 16 110/73 99 12/13/19 13:30 12/13/19 13:30 12/13/19 13:30 12/13/19 13:30 12/13/19 13:30 - Laboratory Result Diagrams: 12/13/19 11:41 12/13/19 11:41 Laboratory results interpreted by me: 12/13/19 12/13/19 12/13/19 11:41 11:41 13:00 Hct 34.7 L Sodium 135.2 L Creatinine 0.38 L Urine Protein 30 H Urine Ketones 80 H Urine Urobilinogen 2.0 H Leukocyte Esterase Rfl SMALL H - Diagnostic Test Radiology reviewed: Image reviewed, Reports reviewed Discharge - Discharge Clinical Impression: Hyperemesis gravidarum before end of 22 week gestation, dehydration Condition: Stable Disposition: HOME, SELF-CARE Instructions: [facility] [place] Additional Instructions: Hyperemesis Gravidarum Hyperemesis gravidarum is the medical term for severe vomiting during . We don't know exactly why it occurs, but it's a common problem. Dehydration can occur. This reduces blood flow to the placenta, decreasing the baby's nourishment. The baby will also become dehydrated. There can be harmful changes in blood sodium, potassium, or acid balance. Our goal is to correct, and prevent, dehydration. For severe cases, we give IV fluids. Antinausea medication will be prescribed. (Don't be concerned about " defects" -- the risk to you and your baby from the hyperemesis is the biggest problem. The antinausea medication is very safe at this stage of .) Call the doctor if you have vaginal bleeding, abdominal pain, severe lightheadedness or weakness, or other alarming symptoms. VOMITING: Vomiting (or nausea without vomiting) can be caused by many other different problems. It can mean that something's wrong with the stomach, such as ulcers or inflammation or the intestinal tract, such as appendicitis. But it can also be a symptom of a problem that has nothing to do with the stomach or intestines. Vomiting is common with severe headaches, earaches, tonsillitis, and kidney infections, etc. We see it with pneumonia or heart attacks. Drugs can cause nausea and vomiting. Many abdominal problems cause vomiting; for example, gallstones, kidney stones, pancreatitis, and intestinal obstruction (blocked bowels). In most cases, curing the vomiting depends on fixing the problem that caused it. For temporary relief, we may use an anti-nausea medicine. For home use, we can prescribe suppositories, chewable pills, pills that dissolve in the mouth, or liquid anti-nausea drugs. If the vomiting seems to be caused by a problem in the stomach, acid-suppressing drugs may be prescribed as well. It's important to avoid dehydration. Sip small amounts of clear liquids (soft drinks, tea, broth, etc) . Try to take fluids frequently even if you are vomiting to prevent dehydration. Take increasing amounts of fluid and when liquids are being consumed successfully, advance to small amounts of bland food (toast, soups, mashed potatoes, etc.) until you are able to resume a regular diet. Avoid aspirin, tobacco, and alcohol. If the vomiting worsens, if the problem that's making you vomit worsens, or if there's evidence of bleeding in the stomach (such as black, tarry stool, or bloody or black vomit), you should return immediately. Also, return if abdominal pain worsens or becomes localized to one area or you develop high fever. Call your doctor if you aren't improved in 24 hours. INTRAVENOUS (I V) FLUIDS: As part of your care today, you received intravenous (IV) fluids. IV fluids are administered to patients who are dehydrated or to those who have certain chemical (electrolyte) abnormalities that need correcting. ANTINAUSEA MEDICATION: You have been given a medication to suppress nausea and vomiting. This type of medication can be given as a shot, pill, or suppository. It will usually last for many hours. Pills and shots usually last six to eight hours. For the typical illness, only one or two doses of the medication may be necessary. Mild lightheadedness may occur. This type of medicine can cause drowsiness. Do not drive or operate dangerous machinery while under its influence. Do not mix with alcohol. See your doctor at once if you have muscle spasms or tightness, or uncontrollable motions (particularly of the neck, mouth, or jaw). Persistent vomiting or severe lightheadedness should also be evaluated by the physician. REGLAN (METOCLOPRAMIDE): Reglan has been prescribed. This medicine affects the stomach and intestines. It can be used to treat nausea and vomiting, to prevent reflux of stomach acid up into the esophagus, or to increase the contractions of the stomach and intestines. It is often prescribed for esophagitis, and for paralysis of the stomach in diabetics. Reglan can cause either mild restlessness or drowsiness. You should contact the doctor at once if you become extremely restless, anxious, or cannot sleep, or if you develop uncontrollable motions of the lips, tongue, or jaw. Do not take alcohol with this medicine. Do not drive or operate machinery until you have been taking this medicine long enough to know how it affects you. Call the doctor if you develop abdominal pains, lightheadedness, black st ool, or blood in the stool or vomitus. FOLLOW-UP CARE: If you have been referred to a physician for follow-up care, call the physicians office for an appointment as you were instructed or within the next two days. If you experience worsening or a significant change in your symptoms, notify the physician immediately or return to the Emergency Department at any time for re-evaluation. Prescriptions: Metoclopramide HCl [Reglan 10 mg Tablet] 10 mg PO Q6HP PRN #30 tablet PRN Reason: Forms: Return to Work
[2019-12-13 13:36] VITALS: BP 110/73
== END 2019-12-13 13:36 | disposition home or self-care (01) ==
LOC: ER 10:08
DX: O21.1 Hyperemesis gravidarum with metabolic disturbance (principal); O23.42 Unspecified infection of urinary tract in pregnancy, second trimester; O99.89 Other specified diseases and conditions complicating pregnancy, childbirth and the puerperium; M54.5 Low back pain; O26.892 Other specified pregnancy related conditions, second trimester; R10.2 Pelvic and perineal pain; Z3A.16 16 weeks gestation of pregnancy; Z79.899 Other long term (current) drug therapy; Z87.892 Personal history of anaphylaxis; Z87.891 Personal history of nicotine dependence
CPT/HCPCS: 99284; 96361; 96374; 36415; 83690; 85025; 80053; 81001; 76815; J2765; J7030

== ENCOUNTER 2019-12-23 11:42 | Emergency (ER) | payer MEDICAID ==
--- NOTE | 2019-12-23 12:48 | ER Document Report ---
ED Medical Screen (RME) - General Chief Complaint: Abdominal Cramping Stated Complaint: ABDOMINAL CRAMPING Time Seen by Provider: 12/23/19 12:44 Mode of Arrival: Ambulatory Information source: Patient Notes: 24-year-old female presented to ED for complaint of abdominal cramping with bruising to the left leg. She states she has been seen in this emergency room several times in the last couple months. Patient states she has had increasing and cramping and bruising to the left leg for the last 3 days and she has called her [employer] every day for the last 3 days and they told her to come to the emergency room today. States she is recently been treated for UTI and she still has some pain with urination and is frequent urination. I have greeted and performed a rapid initial assessment of this patient. A comprehensive ED assessment and evaluation of the patient, analysis of test results and completion of medical decision making process will be conducted by an additional ED providers. TRAVEL OUTSIDE OF THE [place].S. IN LAST 30 DAYS: No - Related Data Allergies/Adverse Reactions: nut - unspecified Adverse Reaction (Severe, Verified 12/23/19 12:44) Anaphylaxis tree nut Adverse Reaction (Severe, Verified 12/23/19 12:44) Anaphylaxis azithromycin Adverse Reaction (Intermediate, Verified 12/23/19 12:44) GI upset Past Medical History Musculoskeltal Medical History: Reports Hx Musculoskeletal Trauma Past Surgical History: Reports: Hx Orthopedic Surgery - Immunizations Immunizations up to date: Yes Hx Diphtheria, Pertussis, Tetanus Vaccination: Yes Physical Exam - Vital signs Vitals: Temp Pulse Resp BP Pulse Ox 98.8 F 88 16 110/72 100 12/23/19 11:47 12/23/19 11:47 12/23/19 11:47 12/23/19 11:47 12/23/19 11:47 Course - Vital Signs Vital signs: Temp Pulse Resp BP Pulse Ox 98.8 F 88 16 110/72 100 12/23/19 11:47 12/23/19 11:47 12/23/19 11:47 12/23/19 11:47 12/23/19 11:47
[2019-12-23 13:20] LABS: ABSOLUTE EOSINOPHILS # (AUTO) 0.1 10^3/uL (0.0-0.6); ABSOLUTE LYMPHOCYTES (AUTO) 1.9 10^3/uL (0.5-4.7); ABSOLUTE MONOCYTES (AUTO) 0.6 10^3/uL (0.1-1.4); ABSOLUTE NEUT (AUTO) 8.3 10^3/uL (1.7-8.2); BASOPHILS % (AUTO) 0.3 % (0-2); EOSINOPHILS % (AUTO) 0.7 % (0-6); HEMATOCRIT 34.9 % (36.0-47.0); LYMPHOCYTES % (AUTO) 17.1 % (13-45); MEAN CORPUSCULAR HEMOGLOBIN 31.3 pg (27.0-33.4); MEAN CORPUSCULAR HGB CONC 34.5 g/dL (32.0-36.0); MEAN CORPUSCULAR VOLUME 91 fl (80-97); MONOCYTES % (AUTO) 5.1 % (3-13); PLATELET COUNT 225 10^3/uL (150-450); RED BLOOD COUNT 3.85 10^6/uL (3.72-5.28); SEGMENTED NEUTROPHILS % (AUTO) 76.8 % (42-78); TOTAL CELLS COUNTED % (AUTO) 100 %; WHITE BLOOD COUNT 10.9 10^3/uL (4.0-10.5)
[2019-12-23 13:24] LABS: INTERNATIONAL RATION (INR) 0.96; PROTHROMBIN TIME 12.8 SEC (11.4-15.4)
[2019-12-23 13:25] LABS: PARTIAL THROMBOPLASTIN TIME 29.7 SEC (23.5-35.8)
[2019-12-23 13:37] LABS: ALBUMIN 3.6 g/dL (3.5-5.0); ALKALINE PHOSPHATASE 59 U/L (38-126); ANION GAP 5 (5-19); ASPARTATE AMINO TRANSFERASE 15 U/L (14-36); BILIRUBIN,TOTAL 0.1 mg/dL (0.2-1.3); BLOOD UREA NITROGEN 8 mg/dL (7-20); CALCIUM 8.9 mg/dL (8.4-10.2); CARBON DIOXIDE 26 mmol/L (22-30); CHLORIDE 104 mmol/L (98-107); GLUCOSE 74 mg/dL (75-110); POTASSIUM 3.8 mmol/L (3.6-5.0); TOTAL PROTEIN 6.2 g/dL (6.3-8.2)
--- NOTE | 2019-12-23 13:53 | ER Document Report ---
ED General - General Chief Complaint: Abdominal Cramping Stated Complaint: ABDOMINAL CRAMPING Time Seen by Provider: 12/23/19 12:44 Mode of Arrival: Ambulatory Notes: 24-year-old female 5 P2 arrives with her mother with chief complaint of 3-day history of diffuse lower abdominal pain suprapubic pain urgency and left flank pain with left medial thigh pain for 3 days. She has some bluish discoloration to her medial thigh. She denies any trauma. She denies any history of PE or DVT. Her maternal grandmother had multiple PEs and DVTs in her life but mother denies any medical problems. Genetic father has multiple problems including cirrhosis COPD alcoholism. Patient has had a history of emesis gravidarum with her last baby. She is now 17 weeks gravid. She did call OB and they advised her to come to the ER. According to staff she has been here multiple times. TRAVEL OUTSIDE OF THE [place] IN LAST 30 DAYS: No - Related Data Allergies/Adverse Reactions: nut - unspecified Adverse Reaction (Severe, Verified 12/23/19 12:44) Anaphylaxis tree nut Adverse Reaction (Severe, Verified 12/23/19 12:44) Anaphylaxis azithromycin Adverse Reaction (Intermediate, Verified 12/23/19 12:44) GI upset Past Medical History - General Information source: Patient - Social History Smoking Status: Former Smoker Cigarette use (# per day): No Chew tobacco use (# tins/day): No Smoking Education Provided: No Frequency of alcohol use: None Drug Abuse: None Lives with: Family - Mother maternal Family History: None Patient has suicidal ideation: No Patient has homicidal ideation: No Musculoskeletal Medical History: Reports Hx Musculoskeletal Trauma Past Surgical History: Reports: Hx Orthopedic Surgery - Immunizations Immunizations up to date: Yes Hx Diphtheria, Pertussis, Tetanus Vaccination: Yes Review of Systems - Review of Systems Constitutional: No symptoms reported EENT: No symptoms reported Cardiovascular: No symptoms reported Respiratory: No symptoms reported Gastrointestinal: See HPI, Abdominal pain, Nausea Genitourinary: See HPI, Dysuria, Urgency Female Genitourinary: No symptoms reported Musculoskeletal: No symptoms reported Skin: No symptoms reported Hematologic/Lymphatic: See HPI, Other - Left groin pain left medial thigh pain question of DVT Neurological/Psychological: No symptoms reported Physical Exam - Vital signs Vitals: Temp Pulse Resp BP Pulse Ox 98.8 F 88 16 110/72 100 03/10/20 11:47 12/23/19 11:47 12/23/19 11:47 12/23/19 11:47 12/23/19 11:47 Interpretation: Normal - General General appearance: Appears well - HEENT Head: Normocephalic Eyes: Normal Conjunctiva: Normal Cornea: Normal Extraocular movements intact: Yes Eyelashes: Normal Pupils: PERRL Sinus: Normal Nasal: Normal Mouth/Lips: Normal Mucous membranes: Normal Pharynx: Normal Neck: Normal - Respiratory Respiratory status: No respiratory distress Chest status: Nontender Breath sounds: Normal Chest palpation: Normal - Cardiovascular Rhythm: Regular Heart sounds: Normal auscultation Murmur: No Friction rub: No Odilia's crunch: No - Abdominal Inspection: Normal Distension: Other - Gravid abdomen above umbilicus fundal height Bowel sounds: Normal Tenderness: Tender - Suprapubic Organomegaly: No organomegaly - Back Back: Tender - Left CVA pain on percussion - Extremities General upper extremity: Normal inspection General lower extremity: Tender - Left medial thigh pain and possible cord Course - Vital Signs Vital signs: Temp Pulse Resp BP Pulse Ox 98.8 F 88 16 110/72 100 12/23/19 11:47 12/23/19 11:47 12/23/19 11:47 12/23/19 11:47 12/23/19 11:47 - Laboratory Result Diagrams: 12/23/19 13:07 12/23/19 13:07 Laboratory results interpreted by me: 12/23/19 12/23/19 12/23/19 13:07 13:07 13:07 WBC 10.9 H Hct 34.9 L Absolute Neuts (auto) 8.3 H Sodium 134.8 L Creatinine 0.37 L Glucose 74 L Total Bilirubin 0.1 L Total Protein 6.2 L Beta HCG, Quant 63329.00 H Urine Ketones TRACE H - Diagnostic Test Radiology reviewed: Reports reviewed Radiology results interpreted by me: 12/23/19 14:30 Ultrasound of left thigh Doppler was negative 12/23/19 18:17 Ultrasound of transvaginal reveals a 17-week 5-day fetus breech position with 139 bpm heart rate with Health Dept and OB doctor Critical Care Note - Critical Care Note Total time excluding time spent on procedures (mins): 90 Comments: Advised following up with OB doctor and with health department and return to ER as needed take medicines as directed Discharge - Discharge Clinical Impression: Left thigh pain, Abdominal pain during intrauterine Qualifiers: Weeks of gestation: 17 weeks Qualified Code(s): Z3A.17 - 17 weeks gestation of Condition: Good Disposition: HOME, SELF-CARE Additional Instructions: Advised following up with OB doctor and with health department and return to ER as needed take medicines as directed; Prescriptions: Acetaminophen with Codeine [Tylenol #3 Tablet] 1 each PO BID #15 tablet Forms: Return to Work
[2019-12-23 15:01] LABS: APPEARANCE,URINE SLIGHTLY-CLOUDY; BILIRUBIN,URINE NEGATIVE (NEGATIVE); COLOR,URINE YELLOW; GLUCOSE, URINE NEGATIVE (NEGATIVE); KETONES,URINE TRACE mg/dL (NEGATIVE); PROTEIN,URINE NEGATIVE (NEGATIVE); URINE SPECIFIC GRAVITY 1.027; UROBILINOGEN,URINE NEGATIVE mg/dL (<2.0)
--- NOTE | 2019-12-23 15:35 | RADIOLOGY REPORT (SQ) ---
EXAM DESCRIPTION: VENOUS UNILATERAL LOWER COMPLETED DATE/TIME: 12/23/2019 2:39 pm REASON FOR STUDY: left leg pain COMPARISON: None. TECHNIQUE: Dynamic and static astorga scale and color images acquired of the left leg venous system. Se lected spectral images acquired with additional compression and augmentation maneuvers. The contralat eral common femoral vein and saphenofemoral junction were also imaged. Images stored on PACS. LIMITATIONS: None. FINDINGS: COMMON FEMORAL: Normal phasicity, compression and augmentation. No visualized echogenic ma terial on astorga scale. No defects on color images. FEMORAL: Normal compression and augmentation. No visualized echogenic material on astorga scale. No defe cts on color images. POPLITEAL: Normal compression, augmentation. No visualized echogenic material on astorga scale. No defec ts on color images. CALF VESSELS: Normal compression, augmentation. No visualized echogenic material on astorga scale. No de fects on color images. GSV and SSV: Normal compression, augmentation. No visualized echogenic material on astorga scale. No def ects on color images. ANY DEEP VENOUS INSUFFICIENCY: Not evaluated. ANY EVIDENCE OF POPLITEAL CYST: No. OTHER: No other significant finding. CONTRALATERAL COMMON FEMORAL VEIN AND SAPHENOFEMORAL JUNCTION: Normal phasicity, compression and augmentation. No visualized echogenic material on astorga scale. No de fects on color images. IMPRESSION: NO EVIDENCE DVT OR SVT IN THE LEFT LEG. TECHNICAL DOCUMENTATION: JOB ID: [id number] 2010 [employer]- All Rights Reserved Reading location - IP/workstation name: [email or web address]
--- NOTE | 2019-12-23 17:25 | RADIOLOGY REPORT (SQ) ---
EXAM DESCRIPTION: U/S OB LIMITED COMPLETED DATE/TIME: 12/23/2019 4:57 pm REASON FOR STUDY: abdominal pain 17 weeks COMPARISON: 12/13/2019 and 12/04/2019. TECHNIQUE: Limited transabdominal grayscale ultrasound for evaluation of specific requested obstetri iris parameters. LIMITATIONS: None. FINDINGS: EGA: 17 week 5 day. RADHA: 05/27/2020. EFW: 207 g. CERVICAL LENGTH: 3.3 cm. Closed. POOL: Largest pocket 4.5 cm. FHR: 139 beats per minute. PRESENTATION: Breech. PLACENTA: Anterior. ANATOMY: Not assessed OTHER: Possible amniotic band present. IMPRESSION: LIMITED OBSTETRICAL ULTRASOUND WITH MEASURED PARAMETERS DELINEATED ABOVE. Trimester of : Second trimester - 13 weeks 1 day to 27 weeks 6 days. TECHNICAL DOCUMENTATION: JOB ID: [id number] 2010 [employer]- All Rights Reserved Reading location - IP/workstation name: [email or web address]
[2019-12-23 18:45] VITALS: BP 110/61
== END 2019-12-23 18:47 | disposition home or self-care (01) ==
LOC: ER 11:42
DX: O26.892 Other specified pregnancy related conditions, second trimester (principal); R10.30 Lower abdominal pain, unspecified; R30.0 Dysuria; R39.15 Urgency of urination; R11.0 Nausea; O99.89 Other specified diseases and conditions complicating pregnancy, childbirth and the puerperium; M79.652 Pain in left thigh; Z3A.17 17 weeks gestation of pregnancy; Z87.891 Personal history of nicotine dependence; Z87.892 Personal history of anaphylaxis; Z91.018 Allergy to other foods
CPT/HCPCS: 36415; 76815; 80053; 81001; 84702; 85025; 85610; 85730; 93971; 99291; 99292

== ENCOUNTER → 2020-01-06 | Outpatient (CLI) | payer MEDICAID ==
[2020-01-06 09:49] LABS: A TYPE INFLUENZA AG NEGATIVE (NEGATIVE); B INFLUENZA AG NEGATIVE (NEGATIVE)
== END ==
LOC: RDC 08:58
PROVIDERS: ATTEND Registered Nurse
DX: Z20.828 Contact with and (suspected) exposure to other viral communicable diseases (principal)
CPT/HCPCS: 87070; 87635; 87804; 87880

== ENCOUNTER 2020-03-30 16:34 | Outpatient (CLI) | payer MEDICAID ==
[2020-03-30 17:47] LABS: APPEARANCE,URINE CLOUDY; BILIRUBIN,URINE NEGATIVE (NEGATIVE); COLOR,URINE YELLOW; GLUCOSE, URINE NEGATIVE (NEGATIVE); KETONES,URINE 20 mg/dL (NEGATIVE); LEUKOCYTE ESTERASE,URINE MODERATE (NEGATIVE); NITRITE,URINE NEGATIVE (NEGATIVE); PROTEIN,URINE NEGATIVE (NEGATIVE); URINE SPECIFIC GRAVITY 1.015; UROBILINOGEN,URINE NEGATIVE mg/dL (<2.0)
[2020-03-30 18:00] LABS: URINE AMPHETAMINES SCREEN NEGATIVE; URINE BARBITURATES SCREEN NEGATIVE; URINE BENZODIAZEPINES SCREEN NEGATIVE; URINE COCAINE SCREEN NEGATIVE; URINE METHADONE SCREEN NEGATIVE; URINE PHENCYCLIDINE SCREEN NEGATIVE
[2020-03-30 18:12] LABS: URINE MARIJUANA (THC) SCREEN UNCONFIRMED POSITIVE
== END 2020-03-30 17:23 | disposition home or self-care (01) ==
LOC: LC 16:34
PROVIDERS: ATTEND Student in an Organized Health Care Education/Training Program
DX: O36.8130 Decreased fetal movements, third trimester, not applicable or unspecified (principal); Z3A.31 31 weeks gestation of pregnancy
CPT/HCPCS: 81001; 80307; 59899; G0480 ×2; 80349

== ENCOUNTER 2020-04-15 13:32 | Outpatient (CLI) | payer MEDICAID ==
[2020-04-15] MEDS ORDERED: RINGERS SOLUTION,LACTATED 1,000 ML IV PRN (13:54)
[2020-04-15] MEDS ORDERED: ONDANSETRON HCL INJ/PF 4 MG/2 ML SDV IV PRN (13:54)
[2020-04-15 14:22] LABS: APPEARANCE,URINE SLIGHTLY-CLOUDY; BILIRUBIN,URINE NEGATIVE (NEGATIVE); COLOR,URINE YELLOW; GLUCOSE, URINE NEGATIVE (NEGATIVE); KETONES,URINE 20 mg/dL (NEGATIVE); LEUKOCYTE ESTERASE,URINE SMALL (NEGATIVE); NITRITE,URINE NEGATIVE (NEGATIVE); PROTEIN,URINE NEGATIVE (NEGATIVE); URINE SPECIFIC GRAVITY 1.004; UROBILINOGEN,URINE NEGATIVE mg/dL (<2.0)
[2020-04-15] MEDS ORDERED: HYDROXYZINE PAMOATE 50 MG CAPSULE PO ONE (14:24)
[2020-04-15] MEDS: HYDROXYZINE PAMOATE 50 MG CAPSULE ONE ×2 (14:29→14:34)
[2020-04-15 14:45] LABS: URINE AMPHETAMINES SCREEN NEGATIVE; URINE BARBITURATES SCREEN NEGATIVE; URINE BENZODIAZEPINES SCREEN NEGATIVE; URINE COCAINE SCREEN NEGATIVE; URINE METHADONE SCREEN NEGATIVE; URINE PHENCYCLIDINE SCREEN NEGATIVE
[2020-04-15 14:47] LABS: URINE MARIJUANA (THC) SCREEN UNCONFIRMED POSITIVE
[2020-04-15 14:59] LABS: ABSOLUTE LYMPHOCYTES (AUTO) 1.6 10^3/uL (0.5-4.7); ABSOLUTE MONOCYTES (AUTO) 0.8 10^3/uL (0.1-1.4); ABSOLUTE NEUT (AUTO) 9.2 10^3/uL (1.7-8.2); BASOPHILS % (AUTO) 0.3 % (0-2); EOSINOPHILS % (AUTO) 0.3 % (0-6); HEMATOCRIT 29.6 % (36.0-47.0); HEMOGLOBIN 10.4 g/dL (12.0-15.5); LYMPHOCYTES % (AUTO) 13.8 % (13-45); MEAN CORPUSCULAR HEMOGLOBIN 31.8 pg (27.0-33.4); MEAN CORPUSCULAR HGB CONC 35.2 g/dL (32.0-36.0); MEAN CORPUSCULAR VOLUME 91 fl (80-97); MONOCYTES % (AUTO) 6.7 % (3-13); PLATELET COUNT 196 10^3/uL (150-450); RED BLOOD COUNT 3.28 10^6/uL (3.72-5.28); RED CELL DISTRIBUTION WIDTH 14.1 % (11.5-14.0); SEGMENTED NEUTROPHILS % (AUTO) 78.9 % (42-78); TOTAL CELLS COUNTED % (AUTO) 100 %; WHITE BLOOD COUNT 11.7 10^3/uL (4.0-10.5)
[2020-04-15 15:20] LABS: ALBUMIN 3.2 g/dL (3.5-5.0); ALKALINE PHOSPHATASE 241 U/L (38-126); ANION GAP 6 (5-19); ASPARTATE AMINO TRANSFERASE 16 U/L (14-36); BILIRUBIN,TOTAL 0.3 mg/dL (0.2-1.3); BLOOD UREA NITROGEN 3 mg/dL (7-20); CALCIUM 8.7 mg/dL (8.4-10.2); CARBON DIOXIDE 20 mmol/L (22-30); CHLORIDE 107 mmol/L (98-107); GLUCOSE 66 mg/dL (75-110); POTASSIUM 3.3 mmol/L (3.6-5.0); TOTAL PROTEIN 5.8 g/dL (6.3-8.2)
--- NOTE | 2020-04-15 16:29 | Left Against Medical Advice ---
Against Medical Advice Admission Date/Time: Primary Care Provider: ISRAEL PRITCHETT MD Date of Patient Emigration: 04/15/20 - 34 weeks, pt c/o abdominal and back pain. - Diagnosis: (1) 34 weeks gestation of Is this a current diagnosis for this admission?: Yes (2) Non-stress test reactive Is this a current diagnosis for this admission?: Yes (3) False labor before 37 completed weeks of gestation during in second trimester, antepartum Is this a current diagnosis for this admission?: Yes - Summary: Summary: Please see Admission and Progress Notes as well. KEY HUDSON is a 25 F, who LEFT AGAINST MEDICAL ADVICE. The Patient was admitted on . Pt refused PO vistaril, a meal was offered. Pt refused any medication and a meal. IVF's given. VE cl/long/ -3. Pt states hx of slipped disk in her back. Informed pt that labs and urine normal. REassurance given, but since pt refused Vistaril and a PO challange, she left AMA. Attending MD is Dr Gold, agrees with plan of care
== END 2020-04-15 16:23 | disposition home or self-care (01) ==
LOC: LC 13:32
PROVIDERS: ATTEND Obstetrics & Gynecology Gynecology
DX: O47.03 False labor before 37 completed weeks of gestation, third trimester (principal); Z3A.34 34 weeks gestation of pregnancy
CPT/HCPCS: 59025; 36415; 85025; 80053; 81001; 80307; G0480 ×2; J3490; 80349

== ENCOUNTER 2020-05-19 19:09 | Outpatient (CLI) | payer MEDICAID ==
[2020-05-19 19:57] LABS: APPEARANCE,URINE CLOUDY; BILIRUBIN,URINE NEGATIVE (NEGATIVE); GLUCOSE, URINE NEGATIVE (NEGATIVE); KETONES,URINE 20 mg/dL (NEGATIVE); LEUKOCYTE ESTERASE,URINE LARGE (NEGATIVE); NITRITE,URINE NEGATIVE (NEGATIVE); PROTEIN,URINE 30 mg/dL (NEGATIVE); URINE SPECIFIC GRAVITY 1.023; UROBILINOGEN,URINE NEGATIVE mg/dL (<2.0)
[2020-05-19 20:03] LABS: COLOR,URINE YELLOW
[2020-05-19 20:15] LABS: URINE AMPHETAMINES SCREEN NEGATIVE; URINE BARBITURATES SCREEN NEGATIVE; URINE BENZODIAZEPINES SCREEN NEGATIVE; URINE COCAINE SCREEN NEGATIVE; URINE METHADONE SCREEN NEGATIVE; URINE PHENCYCLIDINE SCREEN NEGATIVE
[2020-05-19 20:39] LABS: URINE MARIJUANA (THC) SCREEN UNCONFIRMED POSITIVE
--- NOTE | 2020-05-19 21:15 | Non Stress Test Report ---
Non Stress Test Datetime Report Generated by CPN: 05/19/2020 21:15 DEMOGRAPHIC EGA NST: 38.6 EGA NST: 31.5 INDICATION Indication for Study (NST) Other: Rule out Labor Indication for Study (NST) Other: provider orders VITAL SIGNS Temperature - NST: 98.4 Temperature - NST: 98.2 Pulse - NST: 97 Pulse - NST: 88 RESP - NST: 14 RESP - NST: 18 NBPSYS NST: 105 NBPSYS NST: 105 NBPDIA NST: 62 NBPDIA NST: 59 MONITORING Monitor Explained: Monitor Explained; Test Explained; Patient Verbalized Understanding Monitor Explained: Monitor Explained; Test Explained; Patient Verbalized Understanding Time on Monitor: 05/19/2020 19:24 Time on Monitor: 03/30/2020 16:52 Time off Monitor: 05/19/2020 20:56 NST Duration: 92 NST INTERVENTIONS NST Interventions: PO Hydration; Reposition Patient NST Interventions: PO Hydration Physician Notified NST: Terry Hernandez MD Physician Notified NST: elisabeth BABY A: [id number] BABY A Movement : Present Movement : Present Movement : Decreased Contraction Frequency : 3-17 Contraction Frequency : irritability noted FHR Baseline : 125 FHR Baseline : 135 Accelerations : 15X15 Accelerations : 15X15 Decelerations : None Decelerations : None Variability : Moderate 6-25bpm Variability : Moderate 6-25bpm NST Review: Meets Criteria for Reactive NST NST Review: Meets Criteria for Reactive NST NST Review and Verified By : Joslyn Robledo RN NST Results: Reactive NST Results: Reactive NST REPORT Report Trigger: Send Report
== END 2020-05-19 21:00 | disposition home or self-care (01) ==
LOC: LC 19:09
PROVIDERS: ATTEND Obstetrics & Gynecology
DX: O47.1 False labor at or after 37 completed weeks of gestation (principal); Z3A.38 38 weeks gestation of pregnancy; Z88.1 Allergy status to other antibiotic agents; Z91.018 Allergy to other foods
CPT/HCPCS: 59025; 80307; 81005